=== PATIENT | female | born 1980 | race Caucasian/White ===

== ENCOUNTER 2022-12-27 21:08 | Outpatient (REF) | payer OTHER, SELFPAY ==
[2023-01-01 02:52] LABS: EDDP-by GC-MS Negative ng/mL (Cutoff: 100); Methadone Interpretation Negative.; Methadone-by GC-MS Negative ng/mL (Cutoff: 100)
[2023-01-01 04:51] LABS: Phencyclidine Negative ng/mL (Cutoff: 10); Phencyclidine Interpretation Negative.
[2023-01-01 05:05] LABS: Amphetamine Negative ng/mL (Cutoff: 25); Amphetamines Interpretation Negative.; MDA (Ecstasy Metabolite) Negative ng/mL (Cutoff: 25); MDMA (Ecstasy) Negative ng/mL (Cutoff: 25); Methamphetamine Negative ng/mL (Cutoff: 25); Phentermine Negative ng/mL (Cutoff: 25); Pseudoephedrine/Ephedrine Negative ng/mL (Cutoff: 25)
[2023-01-01 12:39] LABS: Benzoylecgonine Negative ng/mL (Cutoff: 50); Cocaine Negative ng/mL (Cutoff: 50); Cocaine Interpretation Negative.; Codeine Negative ng/mL (Cutoff: 25); Dihydrocodeine Negative ng/mL (Cutoff: 25); Hydrocodone Negative ng/mL (Cutoff: 25); Hydromorphone Negative ng/mL (Cutoff: 25); Morphine Negative ng/mL (Cutoff: 25); Naloxone Negative ng/mL (Cutoff: 25); Norhydrocodone Negative ng/mL (Cutoff: 25); Noroxycodone Negative ng/mL (Cutoff: 25); Noroxymorphone Negative ng/mL (Cutoff: 25); Opiates Interpretation Negative.
[2023-01-02 01:04] LABS: 2-OH-Ethyl-Flurazepam Negative ng/mL (Cutoff: 10); 7-NH-Clonazepam Negative ng/mL (Cutoff: 10); 7-NH-Flunitrazepam Negative ng/mL (Cutoff: 10); Alpha OH-Alprazolam Negative ng/mL (Cutoff: 10); Alpha-OH Midazolam Negative ng/mL (Cutoff: 10); Alpha-OH-Triazolam Negative ng/mL (Cutoff: 10); Alprazolam Negative ng/mL (Cutoff: 10); Benzodiazepines Interpretation Negative.; Chlordiazepoxide Negative ng/mL (Cutoff: 10); Clobazam Negative ng/mL (Cutoff: 10); Clonazepam Negative ng/mL (Cutoff: 10); Diazepam Negative ng/mL (Cutoff: 10); Flurazepam Negative ng/mL (Cutoff: 10); Lorazepam Negative ng/mL (Cutoff: 10); Midazolam Negative ng/mL (Cutoff: 10); N-Desmethylclobazam Negative ng/mL (Cutoff: 10); Prazepam Negative ng/mL (Cutoff: 10); Temazepam Negative ng/mL (Cutoff: 10); Triazolam Negative ng/mL (Cutoff: 10); Zolpidem Carboxylic acid Negative ng/mL (Cutoff: 10)
[2023-01-02 11:23] LABS: Methylphenidate 191 ng/mL (Cutoff: 10); Ritalinic Acid 10085 ng/mL (Cutoff: 50)
[2023-01-02 12:09] LABS: Amobarbital Negative ng/mL (Cutoff: 100); Barbiturates Interpretation Negative.; Butalbital Negative ng/mL (Cutoff: 100); Pentobarbital Negative ng/mL (Cutoff: 100); Secobarbital Negative ng/mL (Cutoff: 100)
[2023-01-03 09:16] LABS: Carboxy-THC Interpretation Negative.; Delta-8 CarboxyThc by LC-MS/MS Not Detected ng/mL (Cutoff: 5); Delta-9 CarboxyThc by LC-MS/MS Not Detected ng/mL (Cutoff: 5)
[2023-01-03 11:33] LABS: Buprenorphine Negative ng/mL (Cutoff: 5.0); Norbuprenorphine Negative ng/mL (Cutoff: 2.5)
[2023-01-03 15:33] LABS: Norfentanyl by LC-MS/MS Not Detected
[2023-01-10 09:39] LABS: Propoxyphene (Darvon) Negative
== END 2022-12-27 21:09 | disposition home or self-care (01) ==
LOC: NCHCN 21:08
PROVIDERS: PCP Internal Medicine; Visit Provider Family Medicine
DX: Z51.81 Encounter for therapeutic drug level monitoring (principal); R35.0 Frequency of micturition
CPT/HCPCS: 80320; 80324; 80333; 80348; 80349; 80360; 80361; 80362; 80365; 82542; 80345; 80346; 80353; 80354; 80358; 83992; 87086